=== PATIENT | female | born 1980 | race Caucasian/White ===

== ENCOUNTER 2018-12-16 18:25 | Inpatient (IN) | payer OTHER ==
[~2018-12-16] VITALS: Ht 160 cm; Wt 1.4 kg
[2018-12-16] MEDS ORDERED: PRENATAL TABLE1 EACH PO (19:53)
[2018-12-16] MEDS ORDERED: LOVENOX30 MG/0.3 SQ (19:54)
[2018-12-16] MEDS ORDERED: ALDOMET250 MG/5 M PO (19:54)
== END 2018-12-19 17:29 | disposition home or self-care (01) | DRG 784 ==
LOC: LDR 18:25 → OB/GYN 12-18 15:48
PROVIDERS: ADMIT Specialist
PROC: 0UL70ZZ Occlusion of Bilateral Fallopian Tubes, Open Approach (ICD-10-PCS; 2018-12-16)
PROC: 4A1HXCZ Monitoring of Products of Conception, Cardiac Rate, External Approach (ICD-10-PCS; 2018-12-16)
PROC: 10D00Z1 Extraction of Products of Conception, Low, Open Approach (ICD-10-PCS; principal; 2018-12-16 20:00)
DX: O82 Encounter for cesarean delivery without indication (principal); O99.12 Other diseases of the blood and blood-forming organs and certain disorders involving the immune mechanism complicating childbirth; O14.04 Mild to moderate pre-eclampsia, complicating childbirth; O99.284 Endocrine, nutritional and metabolic diseases complicating childbirth; Z3A.34 34 weeks gestation of pregnancy; Z37.0 Single live birth; Z30.2 Encounter for sterilization